=== PATIENT | female | born 1955 | race Caucasian/White ===

== ENCOUNTER 2018-03-01 14:08 | Emergency (ER) | payer OTHER, BC ==
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
--- NOTE | 2018-03-01 15:33 | CR ---
EXAMINATION: Right forearm and right humerus HISTORY: Pain COMPARISON: None TECHNIQUE: 2 views each FINDINGS: There is no acute osseous abnormality, dislocation, or fracture. Bone mineralization and jarvis int spaces are preserved. No definite elbow joint effusion. Radiocapitellar alignment is preserved. IMPRESSION: No acute osseous abnormality identified.
== END 2018-03-01 15:20 | disposition home or self-care (01) ==
LOC: MW.ED 14:08
DX: S50.11XA Contusion of right forearm, initial encounter (principal); S40.021A Contusion of right upper arm, initial encounter; Z79.01 Long term (current) use of anticoagulants; V43.92XA Unspecified car occupant injured in collision with other type car in traffic accident, initial encounter
CPT/HCPCS: 36415; 73060-26-RT; 73060-RT; 73090-26-RT; 73090-RT; 85025; 99284